=== PATIENT | male | born 1965 ===

== ENCOUNTER 2016-11-12 19:45 | Emergency (ER) | payer MEDICAID ==
[2016-11-12 19:51] VITALS: TEMP 98.2
--- NOTE | 2016-11-12 20:45 | ED PDOC ---
Arrival/HPI <Esteban Perez - Last Filed: 11/12/16 22:13> <Grzegorz Green - Last Filed: 11/14/16 00:46> - General Chief Complaint: Abnormal Skin Integrity Time Seen by Provider: 11/12/16 19:52 - History of Present Illness Narrative History of Present Illness (Text): 11/12/16 20:41 51 M with no pertinent PMHx presents with a splinter ~1.5 cm in length penetrating his hypothenar eminence through the dorsal aspect of his 5th digit. Patient states that he was scrubbing down his counter tops with Clorox when a splinter penetrated his hand. Patient denies any los or loss of function. Patient does state that he does not remember when his last tetanus shot was and is amenable to getting one today. No further complaints. Pt denies f/ch/n/v/d/cp/sob. (Grzegorz Green) Past Medical History - Provider Review Nursing Documentation Reviewed: Yes - Pulmonary Hx Respiratory Disorders: No - Neurological Hx Neurological Disorder: No - HEENT Hx HEENT Disorder: No - Renal Hx Renal Disorder: No - Endocrine/Metabolic Hx Endocrine Disorders: No - Hematological/Oncological Hx Blood Disorders: No - Integumentary Hx Dermatological Disorder: No - Musculoskeletal/Rheumatological Hx Back Pain: Yes - Gastrointestinal Hx Gall Bladder Disease: Yes - Genitourinary/Gynecological Hx Genitourinary Disorders: No - Psychiatric Hx Psychophysiologic Disorder: No Hx Substance Use: No - Surgical History Hx Cholecystectomy: Yes <Grzegorz Green - Last Filed: 11/14/16 00:46> Family/Social History - Physician Review Nursing Documentation Reviewed: Yes Family/Social History: No Known Family HX Smoking Status: Never Smoked Hx Alcohol Use: No Hx Substance Use: No <Grzegorz Green - Last Filed: 11/14/16 00:46> Allergies/Home Meds <Esteban Perez - Last Filed: 11/12/16 22:13> <Grzegorz Green - Last Filed: 11/14/16 00:46> Allergies/Adverse Reactions: Allergies No Known Allergies Allergy (Verified 11/12/16 19:46) Review of Systems - Physician Review All systems were reviewed & negative as marked: Yes - Review of Systems Constitutional: Normal. absent: Fatigue, Weight Change, Fevers Eyes: Normal. absent: Vision Changes, Photophobia, Eye Pain ENT: Normal. absent: Hearing Changes, Tinnitus, Sinus Congestion Respiratory: Normal. absent: SOB, Cough, Sputum Cardiovascular: Normal. absent: Chest Pain, Palpitations, Edema Gastrointestinal: Normal. absent: Abdominal Pain, Diarrhea, Nausea, Vomiting Genitourinary Male: Normal. absent: Dysuria, Frequency, Hematuria Musculoskeletal: Normal. absent: Arthralgias, Back Pain, Neck Pain Skin: Other (See HPI - splinter in left hand) Neurological: Normal. absent: Headache, Dizziness, Focal Weakness, Gait Changes Endocrine: Normal. absent: Diaphoresis, Polyuria, Polydipsia Hemo/Lymphatic: Normal. absent: Adenopathy, Easy Bleeding, Easy Bruising Psychiatric: Normal. absent: Anxiety, Depression, Suicidal Ideation <NormaGrzegorz - Last Filed: 11/14/16 00:46> Physical Exam Vital Signs Reviewed: Yes Temperature: Afebrile Blood Pressure: Normal Pulse: Regular Respiratory Rate: Normal Appearance: Positive for: Well-Appearing, Non-Toxic, Comfortable Pain Distress: None Mental Status: Positive for: Alert and Oriented X 3 - Systems Exam Head: Present: Atraumatic, Normocephalic. No: Contusion, Swelling Pupils: Present: PERRL. No: Sluggish, Non-Reactive Extroacular Muscles: Present: EOMI. No: Gaze Palsy, Entrapment Conjunctiva: Present: Normal. No: Injected, Icteric Mouth: Present: Moist Mucous Membranes Pharnyx: Present: Normal. No: ERYTHEMA, EXUDATE, TONSILS ENLARGED, Muffled/ Hoarse Voice Nose (Internal): Present: Normal Inspection. No: No Active Bleeding, Moist, Engorged, Edematous, Boggy Neck: Present: Normal Range of Motion. No: Meningeal Signs, MIDLINE TENDERNESS , Paraspinal Tenderness Respiratory/Chest: Present: Clear to Auscultation, Good Air Exchange. No: Respiratory Distress, Accessory Muscle Use, Wheezes, Rales Cardiovascular: Present: Regular Rate and Rhythm, Normal S1, S2. No: Murmurs, Irregular Rhythm Abdomen: Present: Normal Bowel Sounds. No: Tenderness, Distention, Peritoneal Signs Back: Present: Normal Inspection. No: CVA Tenderness, Midline Tenderness, Paraspinal Tenderness Upper Extremity: Present: Normal ROM. No: Normal Inspection (VANESSA has a splinter sticking out of the hypothenar eminence and the dorsal aspect of the 5th digit. Mild erythema and TTP noted), Cyanosis, Edema Lower Extremity: Present: Normal Inspection, NORMAL PULSES. No: Edema, CALF TENDERNESS, Cyanosis Neurological: Present: GCS=15, CN II-XII Intact, Speech Normal, Motor Func Grossly Intact, Normal Sensory Function, Gait Normal. No: Other Skin: Present: Warm, Dry, Normal Color. No: Rashes Psychiatric: Present: Alert, Oriented x 3, Normal Insight, Normal Concentration , Normal Affect, Normal Mood. No: Suicidal Ideation, Homicidal Ideation <Grzegorz Green - Last Filed: 11/14/16 00:46> Vital Signs Temp Pulse Resp BP Pulse Ox 11/12/16 22:41 87 18 122/83 98 11/12/16 22:17 80 18 134/100 H 96 11/12/16 19:46 98.2 F 95 H 16 120/86 97 Medical Decision Making <Esteban Perez - Last Filed: 11/12/16 22:13> <Grzegorz Green - Last Filed: 11/14/16 00:46> ED Course and Treatment: 11/12/16 22:00 Pt. was seen and evaluated with the medical and health services manager.Agree with HPI,clinical evaluation and treatment. (Esteban Perez) Assessed 11/12/16 20:51 Impression: 51 M Presents with 1.5 cm splinter in L hand. Plan: - Removed protruding elements of splinter from dorsal aspect and palmar aspect of hand. Patient does not feel any foreign body sensation - L hand x-ray - Tdap - Reassess Reassessed 11/12/16 21:49 - L Hand XR negative for any foreign body - Tdap administered - Oral ABx - Augmentin - Advised patient to come back if there are any signs of infection (Grzegorz Green) - RAD Interpretation Radiology Orders: 11/12/16 20:32 HAND LEFT 3 VIEWS ROUTINE [RAD] Stat - Medication Orders Current Medication Orders: Discontinued Medications Tetanus/Reduced Diphtheria/Acell Pertussis (Boostrix Vaccine Inj) 0.5 ml IM .ONCE ONE Stop: 11/12/16 22:23 Last Admin: 11/12/16 22:39 Dose: 0.5 ml - PA / INFECTION PREVENTION SPECIALIST / Resident Statement / has reviewed & agrees with the documentation as recorded. / has examined the patient and agrees with the treatment plan. <Esteban Perez - Last Filed: 11/12/16 22:13> Disposition/Present on Arrival <Esteban Perez - Last Filed: 11/12/16 22:13> - Present on Arrival Any Indicators Present on Arrival: No History of DVT/PE: No History of Uncontrolled Diabetes: No Urinary Catheter: No History of Decub. Ulcer: No History Surgical Site Infection Following: None - Disposition Have Diagnosis and Disposition been Completed?: Yes Disposition Time: 22:00 Patient Plan: Discharge <Grzegorz Green - Last Filed: 11/14/16 00:46> - Disposition Diagnosis: Splinter Disposition: HOME/ ROUTINE Condition: GOOD Additional Instructions: Mr. Polanco, thank you for letting us take care of you today. Your providers were Dr. Perez and Dr. Green. You were treated for a splinter in your hand. The emergency medical care you received today was directed at your acute symptoms. If you were prescribed any medication, please fill it and take as directed. It may take several days for your symptoms to resolve. Return to the Emergency Department if your symptoms worsen, do not improve, or if you have any other problems. Please contact your doctor or call one of the physicians/clinics you have been referred to that are listed on the Patient Visit Information form that is included in your discharge packet. Bring any paperwork you were given at discharge with you along with any medications you are taking to your follow up visit. Our treatment cannot replace ongoing medical care by a primary care provider (PCP) outside of the emergency department. Thank you for allowing the [facility] team to be part of your care today. The x-ray of your hand did not show any foreign body. Please return if there are any signs of infection. Your Rx is for antibiotics. Please take as directed. Prescriptions: Amoxicillin/Clavulanate [Augmentin 875 MG-125 MG] 1 tab PO BID #20 tab Referrals: PCP,NO [Primary Care Provider] - Follow up with primary Forms: [employer] (E[place]ian)
[2016-11-12 22:19] VITALS: RESP 18
[2016-11-12] MEDS ORDERED: TDAP Vaccine 0.5 mL Syr IM ONE (22:22)
[2016-11-12 22:44] VITALS: BP 122/83; PULSE 87; O2SAT 98
--- NOTE | 2016-11-13 08:58 | RAD ---
PROCEDURE: Left Hand Radiographs. HISTORY: splinter COMPARISON: None. FINDINGS: BONES: Normal. No fracture. JOINTS: Normal. No osteoarthritic changes. SOFT TISSUES: Normal. OTHER FINDINGS: None. IMPRESSION: Normal left hand radiographs.
== END 2016-11-12 22:54 | disposition home or self-care (01) ==
LOC: ED 19:45
DX: S60.457A Superficial foreign body of left little finger, initial encounter (principal); W45.8XXA Other foreign body or object entering through skin, initial encounter; Y93.E9 Activity, other interior property and clothing maintenance; Y92.000 Kitchen of unspecified non-institutional (private) residence as the place of occurrence of the external cause; Z23 Encounter for immunization